=== PATIENT | male | born 1935 | race Caucasian/White ===

== ENCOUNTER 2017-07-08 08:46 | Emergency (ER) | payer MEDICARE ==
[~2017-07-08] VITALS: Ht 167.6 cm; Wt 77.1 kg
[~2017-07-08 08:46] MED LIST: AMLO10TA2 PO; ASPI-630 PO; ATOR40TA59 PO; CALC-98 PO; GEMF600T3 PO; HYDR50TA6 PO; LISI-334 PO; METO-239 PO; OMEG1CAP27 PO; PATI8.4P PO; TAMS0.4C2 PO
--- NOTE | 2017-07-08 09:03 | PHYS DOC ---
Past Medical History Past Medical History: CAD, High Cholesterol, Hypertension, Renal Disease Past Surgical History: Other Additional Past Surgical Histo: CABG Alcohol Use: Occasionally Drug Use: None Adult General Chief Complaint Chief Complaint: TESTICULAR PAIN OR INJURY HPI HPI Patient is a 81 year old male with history of renal disease, hypertension, high cholesterol, CAD, who presents with testicular swelling and redness that began 2 days ago. Patient states he was seen at urgent care yesterday and started him on Cipro. Patient states they did not do any ultrasound. Patient denies any nausea vomiting. Denies any abdominal pain or back pain. He states he has previous injury to the history is testicles when he was young. Patient states he has some dysuria, and frequency. Denies any hematuria. Denies any fever. Review of Systems Review of Systems Constitutional: Denies fever or chills [] Eyes: Denies change in visual acuity, redness, or eye pain [] HENT: Denies nasal congestion or sore throat [] Respiratory: Denies cough or shortness of breath [] Cardiovascular: No additional information not addressed in HPI [] GI: Denies abdominal pain, nausea, vomiting, bloody stools or diarrhea [] : Testicular swelling and redness, dysuria denies hematuria [] Musculoskeletal: Denies back pain or joint pain [] Integument: Denies rash or skin lesions [] Neurologic: Denies headache, focal weakness or sensory changes [] All other systems were reviewed and found to be within normal limits, except as documented in this note. Current Medications Current Medications Current Medications Medications (Trade) Dose Ordered Sig/Mark Start Time Stop Time Status Last Admin Dose Admin Levofloxacin/ Dextrose 100 ml @ 100 mls/hr 1X ONCE 07/08/17 13:45 07/08/17 14:44 07/08/17 13:45 100 MLS/HR Morphine Sulfate 5 mg 1X ONCE 07/08/17 13:45 07/08/17 13:46 DC 07/08/17 13:45 5 MG Sodium Chloride 1,000 ml @ 100 mls/hr 1X ONCE 07/08/17 13:45 07/08/17 23:44 07/08/17 13:45 100 MLS/HR Allergies Allergies Allergies Coded Allergies Type Severity Reaction Last Updated Verified No Known Drug Allergies 04/07/16 No Physical Exam Physical Exam Constitutional: Well developed, well nourished, no acute distress, non-toxic appearance. [] HENT: Normocephalic, atraumatic, bilateral external ears normal, oropharynx moist, no oral exudates, nose normal. [] Eyes: PERRLA, EOMI, conjunctiva normal, no discharge. [] Neck: Normal range of motion, no tenderness, supple, no stridor. [] Cardiovascular:Heart rate regular rhythm, no murmur [] Lungs & Thorax: Bilateral breath sounds clear to auscultation [] Abdomen: Bowel sounds normal, soft, no tenderness, no masses, no pulsatile masses. [] Male exam Uncircumcised male. Testicle with moderate swelling and redness and warmth Skin: Warm, dry, no erythema, no rash. [] Back: No tenderness, no CVA tenderness. [] Extremities: No tenderness, no cyanosis, no clubbing, ROM intact, no edema. [] Neurologic: Alert and oriented X 3, normal motor function, normal sensory function, no focal deficits noted. [] Psychologic: Affect normal, judgement normal, mood normal. [] Current Patient Data Vital Signs Vital Signs Date Time Temp Pulse Resp B/P (MAP) Pulse Ox O2 Delivery O2 Flow Rate FiO2 07/08/17 12:25 50 16 119/64 (82) 95 Room Air 07/08/17 08:50 98.5 98.5 Lab Values Laboratory Tests Test 07/08/17 09:15 07/08/17 11:30 White Blood Count 9.1 x10^3/uL (4.0-11.0) Red Blood Count 3.01 x10^6/uL (4.30-5.70) L Hemoglobin 10.0 g/dL (13.0-17.5) L Hematocrit 30.2 % (39.0-53.0) L Mean Corpuscular Volume 101 fL (79-100) H Mean Corpuscular Hemoglobin 33 pg (25-35) Mean Corpuscular Hemoglobin Concent 33 g/dL (31-37) Red Cell Distribution Width 14.2 % (11.5-14.5) Platelet Count 154 x10^3/uL (140-400) Neutrophils (%) (Auto) 90 % (31-73) H Lymphocytes (%) (Auto) 5 % (24-48) L Monocytes (%) (Auto) 5 % (0-9) Eosinophils (%) (Auto) 0 % (0-3) Basophils (%) (Auto) 0 % (0-3) Neutrophils # (Auto) 8.2 x10^3uL (1.8-7.7) H Lymphocytes # (Auto) 0.5 x10^3/uL (1.0-4.8) L Monocytes # (Auto) 0.4 x10^3/uL (0.0-1.1) Eosinophils # (Auto) 0.0 x10^3/uL (0.0-0.7) Basophils # (Auto) 0.0 x10^3/uL (0.0-0.2) Segmented Neutrophils % 82 % (35-66) H Band Neutrophils % 8 % (0-9) Lymphocytes % 6 % (24-48) L Monocytes % 4 % (0-10) Platelet Estimate Adequate (ADEQUATE) Anisocytosis Slight Sodium Level 140 mmol/L (136-145) Potassium Level 4.3 mmol/L (3.5-5.1) Chloride Level 108 mmol/L (98-107) H Carbon Dioxide Level 22 mmol/L (21-32) Anion Gap 10 (6-14) Blood Urea Nitrogen 31 mg/dL (8-26) H Creatinine 1.7 mg/dL (0.7-1.3) H Estimated GFR (Cockcroft-Gault) 38.8 BUN/Creatinine Ratio 18 (6-20) Glucose Level 164 mg/dL (70-99) H Calcium Level 9.1 mg/dL (8.5-10.1) Total Bilirubin 2.0 mg/dL (0.2-1.0) H Aspartate Amino Transferase (AST) 8 U/L (15-37) L Alanine Aminotransferase (ALT) 18 U/L (16-63) Alkaline Phosphatase 47 U/L (46-116) Total Protein 6.9 g/dL (6.4-8.2) Albumin 3.5 g/dL (3.4-5.0) Albumin/Globulin Ratio 1.0 (1.0-1.7) Lipase 60 U/L (73-393) L Urine Collection Type Unknown Urine Color Yellow Urine Clarity Cloudy Urine pH 5.5 Urine Specific [place] 1.020 Urine Protein Negative mg/dL (NEG-TRACE) Urine Glucose (UA) Negative mg/dL (NEG) Urine Ketones (Stick) Negative mg/dL (NEG) Urine Blood Negative (NEG) Urine Nitrite Negative (NEG) Urine Bilirubin Negative (NEG) Urine Urobilinogen Dipstick 0.2 mg/dL (0.2 mg/dL) Urine Leukocyte Esterase Moderate (NEG) Urine RBC Occ /HPF (0-2) Urine WBC 11-20 /HPF (0-4) Urine Squamous Epithelial Cells Occ /LPF Urine Bacteria Few /HPF (0-FEW) Urine Hyaline Casts Occasional /HPF Urine Mucus Slight /LPF Laboratory Tests 07/08/17 09:15 Laboratory Tests 07/08/17 09:15 EKG EKG [] Radiology/Procedures Radiology/Procedures [] Course & Med Decision Making Course & Med Decision Making Pertinent Labs and Imaging studies reviewed. (See chart for details) Patient is in the ED with testicular swelling and redness that began 2 days ago. He is already on Cipro which was started 1 day ago at urgent care. CBC with normal WBC. CMP with creatinine of 1.7, BUN 31. Patient does have history of renal disease. Testicular ultrasound was noted for hyperemesis left testicle consistent with epididymorchitis. Patient also was noted to have moderate size bilateral hydrocelectomy reflecting chronic infection old hemorrhage. He was started on Levaquin and IV fluids. Consulted with Dr. Figueroa at [facility] who accepted patient for admission. Patient to be transported back via EMS. Dragon Disclaimer Dragon Disclaimer This electronic medical record was generated, in whole or in part, using a voice recognition dictation system. Departure Departure Impression: Primary Impression: Orchitis of left testicle Additional Impression: Hydrocele in adult Disposition: 05 TRANSFER OTHER Condition: STABLE Referrals: FAWAD MEDRANO MD (PCP) Problem Qualifiers MATI RHODES [employer] Jul 08, 2017 09:03
[2017-07-08 09:23] LABS: BASO % 0 % (0-3); EOS % 0 % (0-3); HEMATOCRIT 30.2 % (39.0-53.0); LYMPH # 0.5 x10^3/uL (1.0-4.8); LYMPH % 5 % (24-48); MEAN CORPUSCULAR HEMOGLOBIN 33 pg (25-35); MEAN CORPUSCULAR HGB CONC 33 g/dL (31-37); MEAN CORPUSCULAR VOLUME 101 fL (79-100); MONO % 5 % (0-9); NEUT % 90 % (31-73); PLATELET COUNT 154 x10^3/uL (140-400); RED BLOOD COUNT 3.01 x10^6/uL (4.30-5.70); RED CELL DISTRIBUTION WIDTH 14.2 % (11.5-14.5); WHITE BLOOD COUNT 9.1 x10^3/uL (4.0-11.0)
[2017-07-08 09:34] LABS: CALCIUM 9.1 mg/dL (8.5-10.1); CREATININE 1.7 mg/dL (0.7-1.3); GFR 38.8; POTASSIUM 4.3 mmol/L (3.5-5.1)
[2017-07-08 09:40] LABS: ALBUMIN 3.5 g/dL (3.4-5.0); TOTAL PROTEIN 6.9 g/dL (6.4-8.2)
[2017-07-08 10:20] LABS: ANISOCYTOSIS SLIGHT; PLT ESTIMATE ADEQUATE (ADEQUATE)
--- NOTE | 2017-07-08 10:21 | RAD ---
Scrotal ultrasound, 07/08/2017: History: Left testicular pain The right testicle measures 3.7 x 2.0 x 2.6 cm while the left testicle measures 4.0 x 2.8 x 2.9 cm. There is relative hyperemia in the left testicle and epididymis compared to the right. No testicular mass is seen. There is a tiny right epididymal cyst. There are moderate sized bilateral hydroceles. These are complicated fluid collections with echogenic fluid and multiple septations. IMPRESSION: 1. Hyperemic left testicle and epididymis compatible with epididymoorchitis. 2. Moderate sized complicated bilateral hydroceles which may reflect chronic infection or old hemorrhage.
[2017-07-08 12:00] LABS: BILIRUBIN,URINE NEGATIVE (NEG); GLUCOSE,URINE NEGATIVE (NEG); NITRITE,URINE NEGATIVE (NEG); PH,URINE 5.5; PROTEIN,URINE NEGATIVE (NEG-TRACE); RBC,URINE OCC /HPF (0-2); UROBILINOGEN,URINE 0.2 mg/dL (0.2 mg/dL)
[2017-07-08 12:01] LABS: BACTERIA,URINE FEW /HPF (0-FEW); SQUAMOUS EPITHELIAL CELL,UR OCC /LPF
[2017-07-08] MEDS ORDERED: IV NORMAL SALINE 1000ML BAG 1,000 ML IV ONE (13:45)
[2017-07-08] MEDS ORDERED: MORPHINE SULFATE 10 MG/ML VIAL. IV ONE ×2 (13:45→14:45)
[2017-07-08 14:00] VITALS: BP 155/64
== END 2017-07-08 15:34 | disposition short-term general hospital (02) ==
LOC: ER 08:46
DX: N45.2 Orchitis (principal); N43.3 Hydrocele, unspecified; I25.10 Atherosclerotic heart disease of native coronary artery without angina pectoris; E78.00 Pure hypercholesterolemia, unspecified; I12.9 Hypertensive chronic kidney disease with stage 1 through stage 4 chronic kidney disease, or unspecified chronic kidney disease; N18.9 Chronic kidney disease, unspecified; Z95.1 Presence of aortocoronary bypass graft
CPT/HCPCS: 36415; 76870; 80053; 81001; 83690; 85007; 85025; 87086; 96365; 96375; 96376; 99285; J1956; J2270; J7030

== ENCOUNTER → 2018-08-26 | Outpatient (CLI) | payer MEDICARE ==
[~2018-08-26] MED LIST changes: -AMLO10TA2 PO; +AMLO10TA8 PO; -GEMF600T3 PO; +GEMF600T8 PO
--- NOTE | 2018-08-26 16:07 | KCIC ---
Exam : Carotid Duplex with Grayscale Ultrasound and Spectral and Color Doppler Analysis 08/26/2018 3:57 PM Clinical Indications: Left homonomous hemianopsia Comparison study : None available PQRS Compliance Statement - Stenosis calculations for CT, MR and conventional angiography are based upon measurement of the distal ICA diameter in accordance with the NASCET methodology. Stenosis calculations for carotid ultrasound studies are derived from validated velocity criteria which are known to correlate with the NASCET methodology. Findings: There is severe diffuse atherosclerotic vascular disease. Dense shadowing calcification is seen in the left carotid bulb with associated visual narrowing on color Doppler imaging. Dense calcification partially obscures visualization of the vessel lumen. Focal elevation of velocity at the junction of the common carotid artery and internal carotid artery on the left is seen with velocity measuring of 226 cm/s. The following are the velocities and ratios in the carotid arteries on both sides: RIGHT ICA PV: 110cm/sec RIGHT CCA PV: 81cm/sec RIGHT ICA ED: 21cm/sec RIGHT IC/CCPV: Less than 2 RIGHT VERTEBRAL: antegrade flow LEFT ICA PV: 126cm/sec LEFT CCA PV: 72cm/sec LEFT ICA ED: 27cm/sec LEFT IC/CCPV: Less than 2 LEFT VERTEBRAL: antegrade flow <50% ICA Stenosis: PSV < 125cm/s (EDV < 40cm/s; SVR < 2.0) 50-69% ICA Stenosis: PSV < 125-229cm/s (EDV 40-99cm/s; SVR 2.0-3.9) >70% ICA Stenosis: PSV > 230cm/s (EDV >100cm/s; SVR >4.0) Impression: 1. Exam is somewhat limited by dense plaque in the left carotid bifurcation. Ultrasound findings suggest at least 50-70 percent narrowing of the left internal carotid artery at its origin. CT angiography recommended for further evaluation. 2. Less than 50 percent stenosis of the right internal carotid artery is present by ultrasound criterion Electronically signed by: Mariusz Nova MD (08/26/2018 4:02 PM) [id number]
--- NOTE | 2018-08-26 17:40 | KCIC ---
MRI of the brain without contrast 08/26/2018 Clinical History: Left homonymous hemianopsia. Technique: Unenhanced T1-weighted sagittal and axial, T2-weighted axial and coronal and FLAIR, gradient echo and diffusion-weighted axial images of the brain were obtained. Findings: Images from the study are degraded by patient motion. There is generalized parenchymal atrophy. Patchy, confluent and multiple focal areas of increased signal intensity are seen within the periventricular and subcortical white matter of both cerebral hemispheres on the FLAIR and T2-weighted images consistent with areas of small vessel ischemic disease. An area encephalomalacia is seen involving the superior left parietal lobe. 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 No acute parenchymal abnormality is seen. No extra-axial fluid collection is seen. There is no MRI evidence of acute ischemia/infarction. The orbits are within normal limits. Mild mucosal thickening in seen scattered throughout the paranasal sinuses. Normal flow voids are seen within the major vascular structures surrounding the brain parenchyma. Impression: No acute parenchymal abnormality is seen. Electronically signed by: Dante Alvarado MD (08/26/2018 5:36 PM) [id number]
== END | disposition home or self-care (01) ==
LOC: KCIC US 14:05
PROVIDERS: ATTEND Internal Medicine
DX: I65.23 Occlusion and stenosis of bilateral carotid arteries (principal); G93.89 Other specified disorders of brain; I63.81 Other cerebral infarction due to occlusion or stenosis of small artery; I10 Essential (primary) hypertension; Z79.01 Long term (current) use of anticoagulants
CPT/HCPCS: 70551; 93880